=== PATIENT | female | born 1930 | race Caucasian/White ===

== ENCOUNTER 2019-01-30 18:34 | Emergency (ER) | payer OTHER ==
[~2019-01-30] VITALS: Ht 167.6 cm; Wt 69.4 kg
[2019-01-30 18:37] VITALS: BP 172/79
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
--- NOTE | 2019-01-30 18:37 | NUR ---
PT PLACED IN BED 4.
[2019-01-30] MEDS ORDERED: ASPI-1718 PO (18:43)
[2019-01-30] MEDS ORDERED: ATI.5 PO (18:43)
[2019-01-30] MEDS ORDERED: CARV12.5 PO (18:43)
[2019-01-30] MEDS ORDERED: CLON0.1T42 PO (18:43)
[2019-01-30] MEDS ORDERED: FURO-570 PO (18:43)
[2019-01-30] MEDS ORDERED: NACL 0.9% 1,000 ML IV ONE (19:05)
--- NOTE | 2019-01-30 19:15 | NUR ---
Noemy dixon in [facility] - 01/30/19 at 1915 by JOEY GEOVANNI SAINI
--- NOTE | 2019-01-30 19:16 | NUR ---
Dr. Arceo examining patient.
--- NOTE | 2019-01-30 19:16 | NUR ---
X-Ray at bedside.
[2019-01-30 20:17] LABS: BASOPHILS # (AUTO) 0.1 K/uL (0.00-0.22); BASOPHILS % (AUTO) 1.2 % (0.0-2.0); EOSINOPHILS # (AUTO) 0.3 K/uL (0-0.4); EOSINOPHILS % (AUTO) 3.5 % (0.0-4.0); HEMATOCRIT 27.9 % (36-48); HEMOGLOBIN 8.8 g/dL (12.0-16.0); LYMPHOCYTES # (AUTO) 1.5 K/uL (2.5-16.5); MEAN CORPUSCULAR HEMOGLOBIN 21 pg (27-31); MEAN CORPUSCULAR HGB CONC 32 g/dL (33-37); MEAN CORPUSCULAR VOLUME 67.6 fL (80-94); MONOCYTES # (AUTO) 0.7 K/uL (0.8-1.0); MONOCYTES % (AUTO) 8.9 % (1.7-9.3); NEUTROPHILS # (AUTO) 4.9 K/uL (1.8-7.7); NEUTROPHILS % (AUTO) 66.4 % (42.2-75.2); PLATELET COUNT (AUTO) 407 K/uL (140-450); RED BLOOD CELL COUNT(AUTO) 4.13 MIL/uL (4.20-5.40); RED CELL DISTRIBUTION WIDTH 16.8 % (11.6-13.7); WHITE BLOOD COUNT (AUTO) 7.4 K/uL (4.8-10.8)
[2019-01-30 20:29] LABS: ANION GAP 12.1 (8-16); CARBON DIOXIDE 25.9 mmol/L (21-32); CHLORIDE 101 mmol/L (98-107); CREATININE 2.4 mg/dL (0.6-1.3); GLUCOSE 110 mg/dL (74-106); SODIUM SERUM 135 mmol/L (136-145); UREA NITROGEN, BLOOD 40 mg/dL (7-18)
[2019-01-30 20:36] LABS: ALBUMIN 3.4 g/dL (3.4-5.0); ASPARTATE AMINOTRANSFERASE 16 U/L (15-37); PROTHROMBIN TIME 10.4 secs (10.8-13.4); TOTAL BILIRUBIN 0.3 mg/dL (0.0-1.0)
--- NOTE | 2019-01-30 20:40 | NUR ---
ELEVATED BP NOTED 171/66, HR: 86. PER PT, SHE USUALLY TAKES CARVEDILOL 12.5 MG, AMLODIPINE 2.[address] HAMILTON NOTIFIED
--- NOTE | 2019-01-30 20:40 | NUR ---
Note emmapeggy in [facility] - 01/30/19 at 2102 by MED ELEVATED BP NOTED 171/66, HR: 86. PER PT, SHE USUALLY TAKES CARVEDILOL 12.5 MG, AMLODIPINE 6.25. DR HAMILTON NOTIFIED
[2019-01-30] MEDS ORDERED: CARVEDILOL 6.25 MG TAB PO ONE (20:45)
[2019-01-30] MEDS ORDERED: amLODIPine 5 MG TAB PO ONE ×2 (20:45→21:00)
[2019-01-30 21:18] VITALS: BP 162/66
--- NOTE | 2019-01-30 21:18 | NUR ---
Patient does not wish to proceed with medical care recommended by DR HAMILTON. Patient given information related to possible complications, up to and including , which could occur as a result of leaving hospital at this time. Patient verbalizes understanding of risks involved leaving against medical advice. Patient has signed AMA form.
== END 2019-01-30 21:18 | disposition left against medical advice (07) ==
LOC: MED 18:34
DX: I24.9 Acute ischemic heart disease, unspecified (principal); Z88.1 Allergy status to other antibiotic agents; Z88.8 Allergy status to other drugs, medicaments and biological substances; Z79.82 Long term (current) use of aspirin; Z79.899 Other long term (current) drug therapy
CPT/HCPCS: 36415; 71045; 80053; 84484; 85025; 85610; 85730; 99284; J7030; Q0092; 93005